=== PATIENT | male | born 1935 | race Caucasian/White ===

== ENCOUNTER 2018-04-16 12:04 | Outpatient (CLI) | payer MEDICARE, OTHER ==
--- NOTE | 2018-04-16 13:57 | RAD ---
FRONTAL VIEW CHEST: CLINICAL HISTORY: Cough. FINDINGS: Thee is abnormal multifocal nodular opacity of the right perihilar region, and there is a linear dens ity of the left infrahilar region/left lung base. Cardiac silhouette is prominent as is the central pulmonary vasculature. IMPRESSION: Abnormal nodular density of the right perihilar region. This may relate to perihilar pneumonia or, a lternatively, underlying pulmonary nodule. There is also left basilar density which may relate to at electasis or pneumonia. Recommend followup chest radiograph upon completion of treatment regimen to confirm resolution of fin dings. If findings persist, at that time, CT thorax would be indicated to exclude underlying maligna ncy. POS: [facility]
== END 2018-04-16 12:05 | disposition home or self-care (01) ==
LOC: BICRAD 12:04
PROVIDERS: ATTEND Family Medicine
DX: R05 Cough (principal); R91.1 Solitary pulmonary nodule; R41.82 Altered mental status, unspecified; R35.0 Frequency of micturition
CPT/HCPCS: 36415; 71046; 80053; 85025; 87086

== ENCOUNTER 2019-09-23 12:08 | Emergency (ER) | payer MEDICARE, OTHER ==
--- NOTE | 2019-09-23 13:14 | RAD ---
PORTABLE CHEST 1 VIEW: Date: 09/23/2019 Time: 1239 hours HISTORY: Dyspnea. COMPARISON: 04/16/2018. FINDINGS: The heart size is borderline. The aorta is tortuous. There are chronic changes in the lower lung fiel ds. No lobar consolidation, pneumothoraces, or pleural effusions are identified. IMPRESSION: No acute process. POS: [facility]
[2019-09-23 13:19] LABS: #Eosinphils 0.1 thou/uL (0.0-0.7); #Lymphocytes 1.2 thou/uL (1.20-3.40); #Monocytes 0.5 thou/uL (0.11-0.59); #Neutrophils 4.5 thou/uL (1.40-6.50); %Basophils 0.3 % (0.0-1.0); %Eosinophils 1.4 % (0.0-10.0); %Lymphocytes 18.6 % (21.0-51.0); %Monocytes 8.4 % (0.0-10.0); %Neutrophils 71.4 % (42.0-75.0); Hemoglobin 14.8 g/dL (14.0-18.0); Mean Corpuscular HGB CONC 33.2 g/dL (32.0-36.0); Mean Corpuscular Hemoglobin 34.1 pg (27.0-31.0); Mean Platelet Volume 7.3 fL (7.4-10.4); Platelet Count 131 thou/uL (130-400); RBC Distribution Width 13.1 % (11.5-14.5); Red Blood Cell (RBC) Count 4.36 mill/uL (4.70-6.10); White Blood Cell (WBC) Count 6.2 thou/uL (4.8-10.8)
[2019-09-23 13:30] LABS: ALT (SGPT) 19 U/L (8-55); AST (SGOT) 16 U/L (5-34); Albumin 3.9 g/dL (3.4-4.8); Alkaline Phosphatase 91 U/L (40-110); Anion Gap 12 mmol/L (10-20); BUN (Urea Nitrogen) 16 mg/dL (8.4-25.7); Bilirubin, Total 0.7 mg/dL (0.2-1.2); Calc. Creatinine Clearance 0 mL/min (70-130); Calcium 8.9 mg/dL (7.8-10.44); Carbon Dioxide 24 mmol/L (23-31); Chloride 107 mmol/L (98-107); Estimated GFR-MDRD 65; Globulin 2.4 g/dL (2.4-3.5); Glucose 103 mg/dL (83-110); Potassium 4.3 mmol/L (3.5-5.1); Protein, Total 6.3 g/dL (5.8-8.1); Sodium 139 mmol/L (136-145)
[2019-09-23] MEDS ORDERED: Dexamethasone 10 MG/ML VIAL ONE (17:26)
== END 2019-09-23 18:26 | disposition home or self-care (01) ==
LOC: ERS 12:08
DX: J44.1 Chronic obstructive pulmonary disease with (acute) exacerbation (principal); I25.2 Old myocardial infarction; G30.9 Alzheimer's disease, unspecified; F02.80 Dementia in other diseases classified elsewhere, unspecified severity, without behavioral disturbance, psychotic disturbance, mood disturbance, and anxiety; G51.0 Bell's palsy; I10 Essential (primary) hypertension; E78.5 Hyperlipidemia, unspecified; Z79.82 Long term (current) use of aspirin; Z79.899 Other long term (current) drug therapy
CPT/HCPCS: 36415; 71045; 80053; 80061; 83036; 83880; 84443; 84484; 85025; 93005; 94640; J1100; J7620